=== PATIENT | female | born 1955 | race Caucasian/White ===

== ENCOUNTER → 2024-12-10 08:25 | Outpatient (CLI) | payer MEDICARE, OTHER, SELFPAY ==
--- NOTE | 2024-12-10 08:31 | DI.US.S_ITS ---
PROCEDURE: US CAROTID DOPPLER BI INDICATIONS: BRUIT/CAROTID INTIMAL THICKNESS MEASUREMENT TECHNIQUE: Color and pulse Doppler interrogation was performed of both carotid systems, with image documentation and velocity measurements. COMPARISON: None. FINDINGS: Stenosis calculations are based on SRU ([employer] in [employer]) criteria. The flow velocities and the arterial waveforms are normal within both carotid arterial systems. Is mild atherosclerotic plaque can be seen on the left The estimated degree of internal carotid artery stenosis is less than 50%. Antegrade flow is confirmed within both vertebral arteries. Intimal thickness values are as follows: Right common carotid artery: Proximal 1 mm. Mid 0.8 mm. Distal 0.8 mm. Right internal carotid artery: Proximal 1.1 mm. Right external carotid artery: Proximal 0.8 mm Left common carotid artery: Proximal 0.8 mm. Mid 0.8 mm. Distal 1 mm. Left internal carotid artery proximal: 1.1 mm. Left external carotid artery proximal 0.8 mm IMPRESSION: No hemodynamically significant stenosis is seen. Intimal thickness measurements above. Dictated by: Guille Zapien M.D. on 12/10/2024 at 13:55 Approved by: Guille Zapien M.D. on 12/10/2024 at 13:58
== END ==
LOC: US 08:29
PROVIDERS: PCP Nurse Practitioner; Referring Provider Internal Medicine; Visit Provider Internal Medicine
DX: Z13.6 Encounter for screening for cardiovascular disorders (principal)
CPT/HCPCS: 93880